=== PATIENT | male | born 1985 | race Caucasian/White ===

== ENCOUNTER 2016-12-04 00:45 | Emergency (ER) | payer MEDICAID ==
[~2016-12-04] VITALS: Ht 188 cm; Wt 108.9 kg
[~2016-12-04 00:45] MED LIST: ALBUTEROL17 GM INH; ELIMITE60 GM TOP; LORTAB 5/500 TA1 TA1 PO; NO MEDICATIONS; PREDNISONE PO; VICODIN 5/500 T1 TAB PO; ZITHROMAX PO
== END 2016-12-04 01:24 | disposition home or self-care (01) ==
LOC: SED 00:45
DX: L72.9 Follicular cyst of the skin and subcutaneous tissue, unspecified (principal); L08.9 Local infection of the skin and subcutaneous tissue, unspecified; F17.200 Nicotine dependence, unspecified, uncomplicated; Z88.0 Allergy status to penicillin
CPT/HCPCS: 99282